=== PATIENT | female | born 1985 | race Caucasian/White ===

== ENCOUNTER 2017-02-04 11:35 | Emergency (ER) | payer MEDICAID ==
[~2017-02-04 11:35] MED LIST: CEPHALEXIN 500 MG CAP PO SCH
[2017-02-04 11:41] VITALS: TEMP 98.8
--- NOTE | 2017-02-04 11:49 | EDPHY ---
HPI/HX/ROS/PE/MDM Narrative: CHIEF COMPLAINT: Flank pain HPI: This patient is a 31 year old woman, detoxing at the [facility] from methamphetamine, presenting with two days of acute bilateral flank pain. It is associated with nausea and urinary frequency. Moderate in severity. She denies dysuria or hematuria. She has a history of urinary tract infections, the last was several months ago. REVIEW OF SYSTEMS: Aside from elements discussed in the HPI, a comprehensive 10-point review of systems was reviewed and is negative. PMH: Methamphetamine abuse SOCIAL HISTORY: Methamphetamine abuse, currently in detox at the [facility] PHYSICAL EXAM: General:Patient is alert, in no acute distress. ENT:Eyes are normal to inspection. ENT inspection normal. Neck: Normal inspection. Full range of motion. Respiratory:No respiratory distress. Breath sounds normal bilaterally. Cardiovascular: Regular rate and rhythm. Strong peripheral pulses. Normal cap refill. Abdomen:The abdomen is nontender to palpation. There are no peritoneal signs. There are normal bowel sounds. Back: Normal to inspection. Skin: Normal color. No rash. Warm and dry. Extremities: Normal appearance. Full range of motion. Neuro: Oriented x3. Normal motor function. Normal sensory function. ED Course: Urine dip was positive for leukocytes. Formal UA ordered. UA shows 15-25 WBC consistent with UTI. Patient received one dose of Ceftriaxone IV and prescription for Keflex. She also received IV Toradol for pain relief. MDM: This patient presents with dysuria after discharge from the [facility] for meth abuse. She is not febrile, and is non-toxic on exam. Her abdomen is benign. I do not think she has pyelonephritis. I think she is appropriate for outpatient therapy and we will fill Keflex rx with [facility]. Due to concerns over compliance, I will give her a dose of ceftriaxone here in the ED. - Data Points Laboratory Results: 02/04/17 11:48 Urine Color PALE YELLOW Urine Appearance CLEAR Urine pH 7.0 (5.0-7.5) Ur Specific [place] 1.006 (1.002-1.030) Urine Protein NEGATIVE (NEGATIVE) Urine Ketones NEGATIVE (NEGATIVE) Urine Blood NEGATIVE (NEGATIVE) Urine Nitrate NEGATIVE (NEGATIVE) Urine Bilirubin NEGATIVE (NEGATIVE) Urine Urobilinogen NEGATIVE EU EU (0.2-1.0) Ur Leukocyte Esterase 1+ H (NEGATIVE) Urine RBC 1-3 /hpf /hpf (0-3) Urine WBC 15-25 /hpf H /hpf (0-3) Ur Epithelial Cells TRACE /lpf /lpf (NONE-1+) Urine Bacteria TRACE /hpf H /hpf (NONE SEEN) Ur Culture Indicated? INDICATED H (NI) Urine Glucose NEGATIVE (NEGATIVE) Medications Given: Discontinued Medications Ceftriaxone Sodium 2 gm/ (Dextrose) 50 mls @ 100 mls/hr IV EDNOW ONE PRN Reason: Protocol Stop: 02/04/17 12:49 Last Admin: 02/04/17 12:49 Dose: Not Given Ceftriaxone Sodium/Dextrose (Rocephin 1 Gm (Premix)) 50 mls @ 100 mls/hr IV EDNOW ONE PRN Reason: Protocol Stop: 02/04/17 13:02 Last Admin: 02/04/17 12:49 Dose: 50 mls Ketorolac Tromethamine (Toradol) 30 mg IVP EDNOW ONE Stop: 02/04/17 12:34 Last Admin: 02/04/17 12:49 Dose: 30 mg General Time Seen by Provider: 02/04/17 11:46 Initial Vital Signs: Initial Vital Signs Temperature (C) 37.1 C 02/04/17 11:37 Heart Rate 85 02/04/17 11:37 Respiratory Rate 16 02/04/17 11:37 Blood Pressure 101/73 02/04/17 11:37 O2 Sat (%) 98 02/04/17 11:37 O2 Delivery Mode Room Air Allergies/Adverse Reactions: No Known Allergies Allergy (Unverified 02/04/17 11:41) Home Medications: Medication Instructions Recorded Cephalexin [Keflex] 500 mg PO TID #21 cap 02/04/17 FLUoxetine [PROzac] 10 mg PO 02/04/17 clonazePAM [klonoPIN (*)] 1 mg PO 02/04/17 Departure - Departure Disposition: Home, Routine, Self-Care Clinical Impression: UTI (urinary tract infection) Qualifiers: Urinary tract infection type: site unspecified Hematuria presence: without hematuria Qualified Code(s): N39.0 - Urinary tract infection, site not specified Condition: Good Instructions: Urinary Tract Infection in Women (ED) Additional Instructions: Return to the Emergency Department for fever, worsening pain, flank pain, vomiting, or failure to improve within 72 hours. It is possible that the bacteria causing your infection is resistant to the antibiotic we've placed you on. We have sent a urine for culture, if this comes back with a resistant bacteria, we will call you at the number you provided to us. Referrals: [facility],. [Clinic] - As per Instructions Prescriptions: Cephalexin [Keflex] 500 mg PO TID #21 cap Report Scribed for: Jose Antonio Terrell Report Scribed by: Ileana Dewitt Date of Report: 02/04/17 Time of Report: 11:48 Physician Review and Approval Statement: Portions of this note were transcribed by an ED scribe. I personally performed the history, physical exam, and medical decision making; and confirm the accuracy of the information in the transcribed note.
[2017-02-04 12:01] LABS: COLOR PALE YELLOW; LEUKOCYTE ESTERASE,URINE 1+ (NEGATIVE); NITRITE,URINE NEGATIVE (NEGATIVE)
[2017-02-04 12:06] LABS: BACTERIA TRACE /hpf (NONE SEEN); WBC,URINE 15-25 /hpf (0-3)
[2017-02-04] MEDS ORDERED: cefTRIAXone 2 GM in D5W 50 ML IV ONE (12:20)
[2017-02-04] MEDS ORDERED: KETOROLAC 30 MG/1 ML SDV IVP ONE (12:33)
[2017-02-04 13:38] VITALS: BP 105/72; PULSE 68; RESP 15; O2SAT 97
== END 2017-02-04 13:37 | disposition home or self-care (01) ==
DX: N39.0 Urinary tract infection, site not specified (principal); B96.89 Other specified bacterial agents as the cause of diseases classified elsewhere
CPT/HCPCS: 96365; J0696; J1885